=== PATIENT | female | born 1990 | race Caucasian/White ===

== ENCOUNTER 2018-12-25 05:15 | Inpatient (IN) | payer OTHER, MEDICAID ==
[2018-12-25] MEDS ORDERED: LORazepam 2 MG/ML INJ IVP ONE ×2 (05:27→14:41)
[2018-12-25] MEDS ORDERED: NS 1,000 ML IV ONE (05:27)
--- NOTE | 2018-12-25 05:27 | EDPHY ---
H & P Stated Complaint: heroin WD. tremors, abd and pain all over, tearful Time Seen by Provider: 12/25/18 05:16 HPI/ROS: Chief Complaint: Fever, pain, heroin withdrawal HPI: 28-year-old woman with a history of chronic heroin use is coming in complaining of withdrawal. Patient presented to detox this morning, they noticed she was tachycardic and unwell appearing. Patient states that she last used heroin an hour to ago, injecting into her left forearm. Patient is concerned because she thinks the syringe me abuse may have had some old blood in it. She is complaining of palpitations, general body pain. Some nausea, no vomiting, is complaining of chills. ROS: 10 systems were reviewed and were negative except those elements noted in the HPI. PMH: IV opioid abuse Social History: Positive smoking, no alcohol, IV opioid abuse Family History: non-contributory Physical Exam: Gen: Awake, Alert, unwell appearing, tachycardic, febrile to 38.3 HEENT: Nose: no rhinorrhea Eyes: PERRLA, EOMI Mouth: Moist mucosa Neck: Supple, no JVD Chest: nontender, lungs clear to auscultation Heart: S1, S2 normal, no murmur Abd: Soft, non-tender, no guarding Ext: no edema, non-tender Skin: no rash Neuro: CN II-XII intact, Sensation grossly intact, Strength 5/5 in bilateral upper and lower extremities - Personal History Current Tetanus/Diphtheria Vaccine: Unsure Current Tetanus Diphtheria and Acellular Pertussis (TDAP): Unsure - Medical/Surgical History Hx Asthma: No Hx Chronic Respiratory Disease: No Hx Diabetes: No Hx Cardiac Disease: No Hx Renal Disease: No Hx Cirrhosis: No Hx Alcoholism: No Hx HIV/AIDS: No Hx Splenectomy or Spleen Trauma: No Other PMH: heroin use/abuse, heroin withdrawl - Social History Smoking Status: Never smoked Constitutional: Initial Vital Signs Temperature (C) 38.3 C 12/25/18 05:20 Heart Rate 141 H 12/25/18 05:20 Respiratory Rate 22 H 12/25/18 05:20 Blood Pressure 125/99 H 12/25/18 05:20 O2 Sat (%) 97 12/25/18 05:20 O2 Delivery Mode Room Air Allergies/Adverse Reactions: No Known Allergies Allergy (Unverified 12/25/18 05:22) Home Medications: Medication Instructions Recorded NK [No Known Home Meds] 12/25/18 Medical Decision Making - Diagnostics Imaging Results: Chest x-ray per my interpretation shows a central lying injuring likely in into superior vena cava just above the right atrium. No pneumothorax. Procedures: Procedure: Central line placement. Indication: Severe sepsis, no IV access. Verbal informed consent was obtained, with the risks explained to include but not be limited to bleeding, infection, and collapsed lung. A timeout was observed and patients identity and correct procedure location confirmed. Full maximal sterile barrier technique was uses including cap, gown, sterile gloves, large sheet, hand washing and chlorhexidine prep. The area anesthetized with 1 % lidocaine. The right internal jugular was punctured with a 19 gauge finder needle, then a 7.5 [place] triple-lumen catheter was placed using standard Seldinger technique. There were no complications. Blood return low pressure, dark blood. Patient tolerated procedure well. CXR results: Central line in superior vena cava just above the right atrium. X-ray was interpreted by myself. The procedure was performed by myself. Procedure: Ultrasound guidance: Using the linear probe covered in a sterile sheath, a short axis of the vein was obtained. The vein was completely compressible and was identified as separate from the adjacent non-compressible arterial structure. Under real-time guidance, the introducer needle was observed up to the vein, and then punctured it. These images were saved on the database. ED Course/Re-evaluation: IV drug use review recently injected 2 hr ago from a old syringe at matted blood in it presenting with fever, tachycardia and pain. Initial lactate sent but no other bloods obtained. No IV access despite multiple attempts by nursing staff and myself. Lactic acid came back at 4.5. I then placed a central line. Patient declared severe sepsis. Blood sent. I have ordered IV vancomycin and Zosyn. Patient remains tachycardic. Blood pressure 125 systolic initially. Patient's white count of 1.1. Complaining of back pain. Concerning for possible epidural abscess. No other source of infection identified other than her IV use. She is getting her IV fluid bolus. She has a have antibiotics ordered. I have discussed with Dr. Garsia, hospitalist. He will admit to the ICU for further care. Critical Care Time: I spent a total of 40 minutes of critical care time in obtaining history, performing a physical exam, bedside monitoring of interventions, collecting and interpreting tests and discussion with consultants but not including time spent performing procedures. - Data Points Laboratory Results: Laboratory Results 12/25/18 06:10 12/25/18 06:10 12/25/18 12/25/18 12/25/18 06:10 06:10 06:10 WBC 1.13 10^3/uL L 10^3/uL (3.80-9.50) RBC 4.08 10^6/uL L 10^6/uL (4.18-5.33) Hgb 11.3 g/dL L g/dL (12.6-16.3) Hct 35.1 % L % (38.0-47.0) MCV 86.0 fL fL (81.5-99.8) MCH 27.7 pg L pg (27.9-34.1) MCHC 32.2 g/dL L g/dL (32.4-36.7) RDW 14.8 % % (11.5-15.2) Plt Count 158 10^3/uL 10^3/uL (150-400) MPV 8.3 fL L fL (8.7-11.7) Neut % (Auto) Pending Lymph % (Auto) Pending [place] % (Auto) Pending Eos % (Auto) Pending Baso % (Auto) Pending Nucleat RBC Rel Count Pending Absolute Neuts (auto) Pending Absolute Lymphs (auto) Pending Absolute Monos (auto) Pending Absolute Eos (auto) Pending Absolute Basos (auto) Pending Absolute Nucleated RBC Pending Immature Gran % Pending Immature Gran # Pending Platelet Estimate Pending PT 14.2 SEC SEC (12.0-15.0) INR 1.15 (0.83-1.16) APTT 31.1 SEC SEC (23.0-38.0) VBG Lactic Acid Sodium 138 mEq/L mEq/L (135-145) Potassium 3.5 mEq/L mEq/L (3.5-5.2) Chloride 105 mEq/L mEq/L (97-110) Carbon Dioxide 22 mEq/l mEq/l (22-31) Anion Gap 11 mEq/L mEq/L (6-14) BUN 19 mg/dL mg/dL (7-23) Creatinine 0.7 mg/dL mg/dL (0.6-1.0) Estimated GFR > 60 Glucose 108 mg/dL H mg/dL (70-100) Calcium 8.8 mg/dL mg/dL (8.5-10.4) Total Bilirubin 3.2 mg/dL H mg/dL (0.1-1.4) Conjugated Bilirubin 0.8 mg/dL H mg/dL (0.0-0.5) Unconjugated Bilirubin 2.4 mg/dL H mg/dL (0.0-1.1) 12/25/18 05:25 WBC RBC Hgb Hct MCV MCH MCHC RDW Plt Count MPV Neut % (Auto) Lymph % (Auto) [place] % (Auto) Eos % (Auto) Baso % (Auto) Nucleat RBC Rel Count Absolute Neuts (auto) Absolute Lymphs (auto) Absolute Monos (auto) Absolute Eos (auto) Absolute Basos (auto) Absolute Nucleated RBC Immature Gran % Immature Gran # Platelet Estimate PT INR APTT VBG Lactic Acid 4.5 mmol/L H mmol/L (0.7-2.1) Sodium Potassium Chloride Carbon Dioxide Anion Gap BUN Creatinine Estimated GFR Glucose Calcium Total Bilirubin Conjugated Bilirubin Unconjugated Bilirubin Medications Given: Sodium Chloride (Ns) 1,900 mls @ 3,800 mls/hr 30 ml/kg infuse over 30 min ( 1900 ml) IV EDNOW ONE PRN Reason: Protocol Stop: 12/25/18 06:42 Last Admin: 12/25/18 06:17 Dose: 1,900 mls Vancomycin/Sodium Chloride (Vancomycin 1 Gm (Premix)) 250 mls @ 250 mls/hr IV EDNOW ONE PRN Reason: Protocol Stop: 12/25/18 07:14 Last Admin: 12/25/18 06:23 Dose: 250 mls Piperacillin/Tazobactam/Dextrose (Zosyn (Premix)) 100 mls @ 200 mls/hr IV EDNOW ONE PRN Reason: Protocol Stop: 12/25/18 06:42 Last Admin: 12/25/18 06:33 Dose: 100 mls Discontinued Medications Sodium Chloride (Ns) 1,000 mls @ 0 mls/hr IV ONCE ONE; Wide Open PRN Reason: Protocol Stop: 12/25/18 05:28 Last Admin: 12/25/18 06:11 Dose: 1,000 mls Lorazepam (Ativan Injection) 1 mg IVP EDNOW ONE Stop: 12/25/18 05:28 Last Admin: 12/25/18 06:15 Dose: 1 mg Midazolam HCl (Versed) 2 mg NASAL EDNOW ONE Stop: 12/25/18 06:00 Last Admin: 12/25/18 05:53 Dose: 2 mg Departure - Departure Disposition: [facility] Inpatient Acute Clinical Impression: Sepsis Condition: Critical
[2018-12-25] MEDS ORDERED: LORazepam 2 MG/ML INJ ONE (05:34)
[2018-12-25] MEDS ORDERED: MIDAZOLAM 2 MG/2 ML VIAL ONE (05:52)
[2018-12-25] MEDS ORDERED: MIDAZOLAM 10 MG/2 ML VIAL NASAL ONE (05:59)
[2018-12-25] MEDS ORDERED: PIPERACILLIN/TAZO 4.5 GM/DEX 100 ML IV ONE (06:13)
[2018-12-25] MEDS ORDERED: NS 1,900 ML IV ONE ×2 (06:13)
[2018-12-25] MEDS ORDERED: VANCOMYCIN HCL/NORMAL SALINE 250 ML IV ONE (06:15)
[2018-12-25 06:17] LABS: PLATELET COUNT 158 10^3/uL (150-400)
[2018-12-25 06:31] LABS: INR 1.15 (0.83-1.16); PROTIME(PATIENT) 14.2 SEC (12.0-15.0)
[2018-12-25] MEDS ORDERED: ONDANSETRON DISINTEGRATING 4 MG TAB PO PRN (06:40)
[2018-12-25] MEDS ORDERED: ACETAMINOPHEN 325 MG TAB PO PRN (06:40)
--- NOTE | 2018-12-25 07:08 | PDGENHP ---
History and Physical - Chief Complaint Pain all over - History of Present Illness 28 yo F w/ hx of IV heroin use presents with pain all over. She presented to detox this morning and was immediately noted to be toxic appearing. The patient last used IV heroin about one hour prior to arrival. She is concerned because she thinks the syringe may have had some of her old blood in it. She is complaining of abdominal pain and back pain to her "whole back". She is tender to palpation in her abdomen diffusely as well as both flanks. My history is limited due to sedation obtained for procedure in the ED. In the ED she is in severe sepsis. She is leukopenic, tachycardic, and febrile. Her blood pressure has remained normal thus far. She had a central line inserted. She will be admitted to the ICU for further care. Case discussed with ED physician Dr. Marino; records reviewed and summarized above. History Information - Allergies/Home Medication List Allergies/Adverse Reactions: No Known Allergies Allergy (Unverified 12/25/18 05:22) Home Medications: NK [No Known Home Meds] 12/25/18 [Last Taken Unknown] I have personally reviewed and updated: family history, medical history - Past Medical History Additional medical history: IVDU - Surgical History Reports: no pertinent surgical hx - Family History Additional family history: Unable to obtain - Social History Smoking Status: Never smoked Review of Systems Review of Systems: Unable to obtain due to mental status Physical Exam Physical Exam: Temp Pulse Resp BP Pulse Ox 38.3 C 128 H 22 H 126/87 H 100 12/25/18 05:20 12/25/18 06:44 12/25/18 06:44 12/25/18 06:44 12/25/18 06:44 O2 (L/minute) 2 Constitutional: uncomfortable, other (Sedated, tearful) Eyes: PERRL, anicteric sclera Ears, Nose, Mouth, Throat: moist mucous membranes, no oral mucosal ulcers Cardiovascular: no murmur, rub, or gallop, tachycardia Respiratory: no respiratory distress, clear to auscultation Gastrointestinal: tenderness (Diffuse), No rebound Genitourinary: other (Bilateral CVA tenderness) Skin: warm, normal color Neurologic: CN II-XII Intact, other (Sedated) Psychiatric: anxious, other (Tearful) Lab Data & Imaging Review 12/25/18 06:10 12/25/18 06:10 WBC 1.13 10^3/uL (3.80-9.50) L 12/25/18 06:10 RBC 4.08 10^6/uL (4.18-5.33) L 12/25/18 06:10 Hgb 11.3 g/dL (12.6-16.3) L 12/25/18 06:10 Hct 35.1 % (38.0-47.0) L 12/25/18 06:10 MCV 86.0 fL (81.5-99.8) 12/25/18 06:10 MCH 27.7 pg (27.9-34.1) L 12/25/18 06:10 MCHC 32.2 g/dL (32.4-36.7) L 12/25/18 06:10 RDW 14.8 % (11.5-15.2) 12/25/18 06:10 Plt Count 158 10^3/uL (150-400) 12/25/18 06:10 MPV 8.3 fL (8.7-11.7) L 12/25/18 06:10 PT 14.2 SEC (12.0-15.0) 12/25/18 06:10 INR 1.15 (0.83-1.16) 12/25/18 06:10 APTT 31.1 SEC (23.0-38.0) 12/25/18 06:10 VBG Lactic Acid 4.5 mmol/L (0.7-2.1) H 12/25/18 05:25 Sodium 138 mEq/L (135-145) 12/25/18 06:10 Potassium 3.5 mEq/L (3.5-5.2) 12/25/18 06:10 Chloride 105 mEq/L (97-110) 12/25/18 06:10 Carbon Dioxide 22 mEq/l (22-31) 12/25/18 06:10 Anion Gap 11 mEq/L (6-14) 12/25/18 06:10 BUN 19 mg/dL (7-23) 12/25/18 06:10 Creatinine 0.7 mg/dL (0.6-1.0) 12/25/18 06:10 Estimated GFR > 60 12/25/18 06:10 Glucose 108 mg/dL (70-100) H 12/25/18 06:10 Calcium 8.8 mg/dL (8.5-10.4) 12/25/18 06:10 Total Bilirubin 3.2 mg/dL (0.1-1.4) H 12/25/18 06:10 Conjugated Bilirubin 0.8 mg/dL (0.0-0.5) H 12/25/18 06:10 Unconjugated Bilirubin 2.4 mg/dL (0.0-1.1) H 12/25/18 06:10 Urine Color YELLOW 12/25/18 06:38 Urine Appearance HAZY 12/25/18 06:38 Urine pH 5.0 (5.0-7.5) 12/25/18 06:38 Ur Specific [place] 1.020 (1.002-1.030) 12/25/18 06:38 Urine Protein NEGATIVE (NEGATIVE) 12/25/18 06:38 Urine Ketones NEGATIVE (NEGATIVE) 12/25/18 06:38 Urine Blood 1+ (NEGATIVE) H 12/25/18 06:38 Urine Nitrate POSITIVE (NEGATIVE) H 12/25/18 06:38 Urine Bilirubin NEGATIVE (NEGATIVE) 12/25/18 06:38 Urine Urobilinogen NEGATIVE EU (0.2-1.0) 12/25/18 06:38 Ur Leukocyte Esterase NEGATIVE (NEGATIVE) 12/25/18 06:38 Urine Glucose NEGATIVE (NEGATIVE) 12/25/18 06:38 Assessment & Plan Assessment: 28 yo F w/ hx of IVDU presents with severe sepsis. Plan: 1. Severe sepsis - Most likely due to bloodstream infection noting symptoms started a few hours after injecting heroin with an old needle, possibly with old blood still in it. The patient is complaining of abdominal pain and back pain "all over". She is tender throughout her abdomen and both flanks. She is displaying 4/4 SIRS criteria and has a lactate of 4.5 but BP remains WNL. - Admit to ICU, central line in place - 30 mL kg fluid bolus - Vancomycin, Zosyn IV for broad coverage; high risk for resistant infections - Blood and urine cultures ordered - Will obtain CT A/P noting patient's complaints of abdominal pain and back pain , may need MRI if concern for spinal infection arises - Infectious disease consult placed 2. Leukopenia - WBC 1.1, ANC 750 on admission, most likely due to severe sepsis. - Acute management as above - Will check HIV 3. Lactic acidosis - 2/2 sepsis; 4.5 on admission. - Aggressive IVF 4. IVDU - Patient admits to IV heroin use as recently as a few hours prior to admission. - Director Microbiology cessation - Case management consult - Check HIV, hepatitis panel Diet - NPO pending improvement in mental status Code - Full Ppx - SCDs Dispo - Admit under inpatient status I personally spent 40 minutes of critical care time evaluating patient, interpreting data, and coordinating care.
[2018-12-25] MEDS ORDERED: IOPAMIDOL (ISOVUE-300) 100 ML BTL ONE (07:13)
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
[2018-12-25 09:25] LABS: CREATINE KINASE 47 IU/L (0-156)
--- NOTE | 2018-12-25 09:47 | GCON ---
[f rep st] CONSULTATION JUDGE CLERK CONSULTATION I was asked to see this patient by Dr. Darren Garsia. REASON FOR ADMISSION: Sepsis. Patient is a 28-year-old white female with a past medical history inc luding IV heroin use. She presented to detox and was found to be ill-appearing. She was complaining of abdominal pain as well as severe back pain. There is a possibility the syringe she was using may have been dirty. She was seen in the emergency room, was subsequently admitted to the intensive car e unit with severe sepsis. Currently, she is continuing to complain of abdominal pain as well as adore k pain. She denies any cough or productive sputum. There is no dysuria. She has had both fever and diaphoresis. In the emergency room a central line has been placed. REVIEW OF SYSTEMS: Ten-point review of systems performed and negative except for what is listed in t he HPI. ALLERGIES: None. MEDICATIONS: SOCIAL HISTORY: No history of tobacco use. Unknown alcohol use. IV drug use. She is currently une mployed. FAMILY HISTORY: Significant for drug use. PHYSICAL EXAM: VITAL SIGNS: Blood pressure 101/69, this is down from 127/100, pulse is 137, respira tions 25, temperature 38.7, oxygen saturation 91% on room air. GENERAL: She is a well-developed, di aphoretic, 28-year-old white female who is in moderate pain. HEENT: Eyes are PERRLA, EOMI. Throat shows no erythema or tonsillar tissue. NECK: Supple. No cervical adenopathy. HEART: Regular rate and rhythm without murmurs, rubs, gallops. LUNGS: Diminished breath sounds but no wheeze. ABDOMEN : Soft, diffusely tender. Bowel sounds are present. EXTREMITIES: No clubbing, cyanosis, or edema. LABORATORIES: White count is 1.13, hemoglobin 13, hematocrit 35, platelet count is 158. Sodium 138, potassium 3.5, chloride 105, CO2 is 22, BUN is 19, creatinine 0.7, glucose is 108. Bilirubin is dayanara vated at 3.1, AST is elevated at 241, ALT is elevated at 165, alkaline phosphatase 189. Urinalysis s hows pH 5, specific gravity 1.020, positive nitrate, 5-10 WBCs, 4+ bacteria. Tox screen is currently pending. Hepatitis screen is currently pending. Chest x-ray is clear. IMPRESSION: 1. Severe sepsis. Source is unclear at this time. Cultures are currently pending. 2. History of IV heroin use with likely use of a dirty needle. 3. Abdominal pain. 4. Back pain. 5. Leukopenia. 6. Severe sepsis. 7. Lactic acidosis. RECOMMENDATIONS: 1. Agree with sepsis protocol. 2. IV antibiotics. Resume vancomycin and Zosyn. 3. Agree with Infectious Disease consultation. 4. CT scan of the abdomen and pelvis. 5. Would consider MRI of the spine. 6. Would consider echocardiogram. 7. Aggressive hydration. 8. Close cardiovascular monitoring. 9. DVT and PE prophylaxis. 10. Stress ulcer prophylaxis. Thank you very much for allowing me to participate in the care of this patient. We will follow with you. /[id number]/MODL
[2018-12-25 10:34] LABS: HEPATITIS B SURFACE ANTIGEN NEGATIVE (NEGATIVE)
[2018-12-25] MEDS: MICAFUNGIN NA 100 MG in NS 100 ML IV SCH (10:40)
[2018-12-25 10:48] LABS: HEPATITIS A ANTIBODY IGM (BCH) NEGATIVE (NEGATIVE); HEPATITIS B CORE AB IGM NEGATIVE (NEGATIVE)
[2018-12-25] MEDS: NOREPINEPHRINE BITARTRATE 4 MG in NS 500 ML IV SCH ×2 (10:48→15:54)
[2018-12-25 10:58] LABS: HEPATITIS C ANTIBODY TOTAL REACTIVE (NEGATIVE)
[2018-12-25] MEDS ORDERED: NOREPINEPHRINE BITARTRATE 16 MG in NS 250 ML IV SCH (11:00)
--- NOTE | 2018-12-25 11:09 | GCON ---
[f rep st] CONSULTATION DATE OF CONSULTATION: 12/25/2018 REFERRING PHYSICIAN: Maria E Ye MD REASON FOR CONSULTATION: Severe sepsis. HISTORY OF PRESENT ILLNESS: The patient is a 28-year-old female with a past medical history of injec tion drug use, I am asked to see in consultation for severe sepsis. The patient describes 1 day of f ever, shaking chills and pain all over. The patient also complains of pain affecting the flanks and back. Her history is somewhat limited currently due to sleepiness. She denies any cough or shortnes s of breath. She denies any skin rash or prior history of skin abscesses. She does not note dysuria . She has not had any difficulty using her arms or legs. The patient describes using a needle of he r own, which had dried blood in it prior to onset of symptoms. She does not share needles. She stat es she gets her needles from needle exchange. She uses tap water to dissolve her heroin. Upon arriv al at [facility], she was noted to be febrile with a maximum temperature this morning o f 39.4. Laboratory assessment revealed a white blood cell count of 1.1 with 67% neutrophils and 9% b ands; AST 241, ALT 165, bilirubin 3.1 (conjugated 0.8), alkaline phosphatase 189 and CPK of 47. Ches t x-ray was performed and showed no evidence of pneumonia. She subsequently had an abdominal CT scan performed, which showed a small amount of ascites with no evidence of other intraabdominal pathology other than constipation being noted. No biliary ductal dilatation was present. The patient has bee n treated empirically with vancomycin and piperacillin/tazobactam. She has not required pressors for blood pressure support. Her lactic acid was elevated at 4.5 upon presentation and has decreased to 2.2. There is no recent travel. Given the above findings, I am now asked to assist in her ongoing m anagement. PAST MEDICAL HISTORY: Injection drug use x4 years; no history of previous infectious complications. PAST SURGICAL HISTORY: Appendectomy, exploratory laparotomy with question of due to adhesions; right arm fracture. CURRENT MEDICATIONS: Vancomycin 1 g IV x1, Zosyn 3.375 g IV q.6 hours, Toradol as needed. ALLERGIES: No known drug allergies. SOCIAL HISTORY: The patient smokes 1 pack per week. Denies significant alcohol use. Injection hero in use as outlined above. She does not note any other drug use. FAMILY HISTORY: Currently not obtainable. PHYSICAL EXAMINATION: VITAL SIGNS: Temperature maximum 39.4, temperature current 38.7, heart rate 1 30, respiratory rate 26, blood pressure 98/59. GENERAL: The patient is ill appearing with diaphores is being present. HEENT: There is no scleral icterus, conjunctival injection, or conjunctival petec hiae. Oropharynx shows dry mucous membranes. Dentition in fair repair. There is no nasal discharge or sinus tenderness. NECK: Supple without meningismus. There is mild point tenderness along the c ervical spine. CHEST: There are occasional crackles at both bases. The respiratory effort is incre ased. CARDIOVASCULAR: Tachycardic without murmurs, gallops, or rubs. ABDOMEN: Soft, nontender and nondistended. There is no palpable organomegaly. Bowel sounds are hypoactive. MUSCULOSKELETAL: T here is tenderness over both upper extremities to palpation of the muscle bed; this is not present ov er the lower extremity. There is no cyanosis or clubbing. SKIN: Several tattoos are present. No s tigmata of endocarditis. There is signs of injection drug use over the arms bilaterally. No evidenc e of skin abscesses. NEUROLOGIC: The patient is sleepy, but arousable and responds appropriately. Cranial nerves 2-12 are grossly intact. Sensation is grossly intact. Motor strength is limited by e ffort, but appears to be intact in the lower extremities and upper extremities. LYMPHATICS: No cerv ical, supraclavicular, or inguinal nodes palpable. LABORATORY DATA: White blood cell count 1.1, hematocrit 35.1, platelets 158, neutrophils 67%, bands 9%, lymphocytes 22%. Serum creatinine is 0.7, bicarbonate 22, bilirubin 3.2 (conjugated 0.8), AST 24 1, ALT 165, alkaline phosphatase 189, CPK 47, albumin 3.8, INR is 1.1. Venous lactate 4.5 at time of presentation and currently 2.2. Urinalysis shows 1 to 3 red blood cells, 5 to 10 white blood cells, 4+ bacteria and 2+ mucus. Hepatitis B surface antigen is negative. HIV antibody is pending. Hepat itis A IgM is pending. Hepatitis C antibody is pending. Urine drug screen shows presence of opiates , amphetamines and benzodiazepine; alcohol is less than 10, acetaminophen less than 10. Blood cultur es x2 sets are pending. Chest x-ray without infiltrates being noted. Abdominal CT scan as outlined in the history of present illness. IMPRESSION: 1. Severe sepsis in the setting of injection drug use: Primary concern is for bacteremia associated with injection drug use. Most likely, this would be Staphylococcus aureus or beta-hemolytic strepto cocci, although in the setting of injection drug use, gram-negative rods including Pseudomonas are of consideration. In the setting of injection drug use, candidemia would also be in the differential d iagnosis. Given her neck pain, epidural abscess or diskitis also of possible concern. Endocarditis also consideration in the setting of injection drug use. She is also at risk for Streptococcus pneum oniae based on her tobacco use. 2. Leukopenia: Likely secondary to severe sepsis. 3. Elevated liver enzymes: Await hepatitis serologies, as patient will be at substantial risk of he patitis C in the setting of injection drug use. No evidence of biliary disease on CT scan. Bilirubi n is increased, but is primarily unconjugated. Will follow hematocrit over time to ensure no evidenc e of hemolysis. 4. Injection drug use: Screening serologies including HIV antibody are pending. RECOMMENDATIONS: 1. Agree with empiric vancomycin. Will dose initially at 1 g IV q.12 hours. 2. Increase Zosyn to 4.5 g IV q.6 hours to cover Pseudomonas pending blood culture data. 3. Micafungin 100 mg IV q.24 hours pending blood culture data to provide activity against candidemia . 4. MRI of the cervical spine to assess for epidural abscess or diskitis. 5. Transthoracic echocardiogram. 6. Follow up blood cultures as available. 7. Continued care of sepsis in the intensive care unit. Thank you for this consultation. We will continue to follow the patient with you. /[id number]/MODL
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
[2018-12-25] MEDS ORDERED: PIPERACILLIN/TAZO 3.375 GM/DEX 50 ML IV SCH (12:00)
[2018-12-25] MEDS: PIPERACILLIN/TAZO 4.5 GM/DEX 100 ML IV SCH ×2 (12:10→17:35)
--- NOTE | 2018-12-25 12:49 | ECHO ---
[email or web address] [address] Main: [phone] Echocardiography Examination Transthoracic Name: RAFITA CANO MR#: [id number] Study Date: 12/25/2018 Study Time: 11:19 AM Date of : 1990 Age: 28 year(s) Height: 167.6 cm (66 in.) Weight: 63.05 kg (139 lb.) BSA: 1.71 m2 Gender: Female Examination: Echo Contrast: Image Quality: Adequate Rhythm: Heart Rate: BP: 97 mmHg/61 mmHg Indication: sepsis, injection drug use, assess for endocarditis Procedure Staff Referring Physician: Major General: Juliana Morris [facility] Reading Physician: Solis Granda MD Requesting Provider: Ordering Physician: Brayden Epstein Indication: sepsis, injection drug use, assess for endocarditis Measurements Chambers AV/MV Label Value Normal Value Label Value Normal Value LVOTd 2.1 cm (1.8cm - 2cm) AV PGmax 8 mmHg LVOT VTI 17.9 cm (18cm - 22cm) AV PGmean 5 mmHg LVDd, 2D 4 cm (3.9cm - 5.3cm) AV Vmax 1.4 m/s LVDs, 2D 3.2 cm (2.1cm - 4cm) TAMY (VTI) 2.8 cm2 IVSd, 2D 1 cm (0.6cm - 1.1cm) MV E Vmax 0.89 m/s LVPWd, 2D 1 cm MV A Vmax 0.7 m/s LVEF, BP 54 % (55% - 70%) MV E/A 1.27 LVEF, 2D 44 % (54% - 74%) MV E/E' lateral 5.3 LVOT PGmean 3 mmHg MV E/E' septal 7 (0.6 - 2.6) LVOT Vmean 0.83 m/s MV DT 187 ms RVDd, 2D 2.8 cm (1.9cm - 3.8cm) MV E' septal 0.13 m/s LA Volume, BP 41 ml (22ml - 52ml) MV PHT 0.05 s LADs, 2D 3.1 cm (2.7cm - 3.8cm) MVA PHT 4.1 cm2 LAESV index, BP 24 ml/m2 MV E' lateral 0.17 m/s RA Area 14.3 cm2 MV E/E' mean 5.93 Additional Vessels MV PHT 54 ms Label Value Normal Value MV E' mean 0.15 m/s AoAsc 2.9 cm TV/PV AoRoot, 2D 3 cm (1.4cm - 2.6cm) Label Value Normal Value Patient: RAFITA CANO Study Date: 12/25/2018 Page 1 of 3 11:19 AM IVC 1.9 cm (1.2cm - 2.3cm) RA Pressure 5 mmHg RVSP 32 mmHg TR Pmax 27 mmHg TR Vmax 2.61 m/s PV PGmax 3 mmHg PV Vmax, Caliper 0.83 m/s (0.6m/s - 0.9m/s) Conclusions No evidence of endocarditis. Left Ventricle: The ejection fraction, measured by Simpsons method, is 54 %. There are no regional wall motion abnormalities. Left ventricular diastolic function parameters are normal. Mitral Valve: Mitral valve appears structurally normal. Aortic Valve: Aortic leaflets are structurally normal. Tricuspid Valve: Tricuspid valve leaflets are structurally normal. Mild tricuspid regurgitation. Right Ventricular systolic pressure is measured at 32 mmHg. Pericardium: No pericardial effusion. Findings No evidence of endocarditis. Left Ventricle: Left ventricle is normal in size. Normal global systolic left ventricular function. The ejection fraction, measured by Simpsons method, is 54 %. EF range is estimated at 55 % - 60 %. Left ventricle wall thickness is normal. There are no regional wall motion abnormalities. Left ventricular diastolic function parameters are normal. No LV hypertrophy. Right Ventricle: Normal size right ventricle. Right ventricular systolic function is normal. Left Atrium: The left atrium is normal in size. Right Atrium: The right atrium is normal in size. Mitral Valve: Mitral valve appears structurally normal. Mild mitral regurgitation. No mitral valve stenosis. Aortic Valve: Aortic leaflets are structurally normal. No significant aortic valve regurgitation. There is no aortic stenosis. Tricuspid Valve: Tricuspid valve leaflets are structurally normal. Mild tricuspid regurgitation. No tricuspid valve stenosis. Right Ventricular systolic pressure is measured at 32 mmHg. Pulmonary artery pressure normal. Pulmonic Valve: Pulmonic leaflets are structurally normal. Aorta: The aortic root size in 2D measures 3.0 cm. The ascending aorta measures 2.9 cm. Aorta Measurements AoRoot, 2D is 3.0 cm. IVC: Patient: RAFITA CANO Study Date: 12/25/2018 Page 2 of 3 11:19 AM The inferior vena cava is normal in size. Pericardium: No pericardial effusion. Exam Details Procedure Ordered: Echo Procedure Status: Routine study Image Quality: Adequate Facility Location: Bedside (No Signature Object) Patient: RAFITA CANO Study Date: 12/25/2018 Page 3 of 3 11:19 AM [id number]
[2018-12-25] MEDS: KETOROLAC 15 MG/1 ML SDV IVP PRN (13:50)
--- NOTE | 2018-12-25 14:12 | PDMN ---
Medical Necessity Medical necessity: Pt meets IP criteria per MD & MCG M-160; est los >2 mn for eval/tx of severe sepsis (likely r/t bloodstream infection after injecting heroin w/an old needle) w/tachycardia, tachypnea, leukopenia & lactic acidosis; admit to ICU for further workup/close monitoring, IV abx, aggressive IVFs & ID consult; hx IV drug use; per H&P & order 12/25/18
[2018-12-25] MEDS ORDERED: GADOBUTROL 10 ML VIAL IVP ONE (15:05)
[2018-12-25] MEDS: VANCOMYCIN HCL/NORMAL SALINE 250 ML IV SCH (18:09)
[2018-12-26] MEDS: PIPERACILLIN/TAZO 4.5 GM/DEX 100 ML IV SCH ×5 (00:03→23:03)
[2018-12-26] MEDS ORDERED: IBUPROFEN 600 MG TAB PO PRN (01:55)
[2018-12-26] MEDS ORDERED: LOPERAMIDE HCL 2 MG CAP PO PRN (01:55)
[2018-12-26] MEDS: KETOROLAC 15 MG/1 ML SDV IVP PRN ×3 (02:27→18:04)
[2018-12-26] MEDS: LORazepam 1 MG TAB PO PRN ×5 (02:28→23:59)
[2018-12-26] MEDS ORDERED: NS 1,000 ML IV SCH (02:30)
[2018-12-26] MEDS: ONDANSETRON 4 MG/2 ML VIAL IVP PRN (02:42)
[2018-12-26] MEDS: ACETAMINOPHEN 325 MG TAB PO PRN ×2 (04:21→10:00)
[2018-12-26 05:09] LABS: PLATELET COUNT 96 10^3/uL (150-400)
[2018-12-26] MEDS ORDERED: LORazepam 2 MG/ML INJ IVP ONE (05:30)
[2018-12-26] MEDS: VANCOMYCIN HCL/NORMAL SALINE 250 ML IV SCH ×2 (06:22→18:21)
[2018-12-26] MEDS: MICAFUNGIN NA 100 MG in NS 100 ML IV SCH (08:25)
--- NOTE | 2018-12-26 08:32 | PCMIDPN ---
Assessment/Plan: #Sepsis with IVDU. Now with bandemia/thrombocytopenia suggestive of bacteria process. There is concern for endocarditis but No murmur no peripheral stigmata , TTE negative. Blood cx neg 24h. On empiric therapy for MRSA, PsA, Bonnie. non contrast C and T spine negative. Hemodynamics are better. AF since 12/25 --continue current antibiotic regimen for another 24 hr --hold off on AMBER for now, await blood cultures. --check vancomycin trough, goal around 15 # Elevated LFTs and HCV ab + VL pending: not awake enough at time of my visit to review these findings. HIV negative. Acute HBV studies negative. LFTs trending down . Suspect elevation due to sepsis --add HBV ab to assure prior vaccination/immunity --acute HCV not likely etiology of illness # Leukopenia on admit resolved, no more appropriate leukocytosis/bandemia Medications Zosyn 4.5 g IV Q 6 #1 Micafungin 100 mg IV daily #2 Vancomycin 1 g IV q.12 #2 Microbiology 12/25/18 06:10 Blood Cx (2): NGTD Subjective: very difficult to get to wake up off all pressors Objective: Vital Signs Temp Pulse Resp BP Pulse Ox 36.7 C 100 21 H 113/84 H 96 12/26/18 03:00 12/26/18 08:00 12/26/18 08:00 12/26/18 08:00 12/26/18 08:00 Laboratory Results 12/26/18 04:30 12/26/18 04:30 12/25/18 12/26/18 12/27/18 05:59 05:59 05:59 Intake Total 5356 Output Total 2750 550 Balance 2606 -550 - Physical Exam General Appearance: other (sleepy) EENT: No scleral icterus, No conjunctival petechiae Respiratory: lungs clear, No accessory muscle use Cardiac/Chest: regular rate, rhythm, No systolic murmur Extremities: other (no peripheral sigmata of endocarditis), No pedal edema Skin: No rash Neuro/Psych: alert, normal mood/affect, oriented x 3 - Time Spent With Patient Time Spent with Patient: greater than 25 minutes (care coordinated w critical care team) Time Spent with Patient: Greater than 25 minutes spent on this patients care, greater than 50% of time spent counseling, educating, and coordinating care regarding the above mentioned plan. ICD10 Worksheet Patient Problems: Problems Problem Status Onset Sepsis Acute
--- NOTE | 2018-12-26 09:01 | PDINTPN ---
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 Echocardiogram shows no evidence of vegetations. Blood cultures pending -current antibiotics per Infectious Disease * Abdominal pain-CT scan of abdomen mostly unremarkable * Back pain-MRI of the spine was negative * Leukopenia * History of IV heroin abuse-some withdrawals. * Pain-reasonably well controlled * VTE prophylaxis * Stress ulcer prophylaxis * Nutrition-none currently Subjective: Somnolent. No current pain. Infrequent outbursts per nursing Objective: Vital Signs Temp Pulse Resp BP Pulse Ox 36.7 C 100 21 H 113/84 H 96 12/26/18 03:00 12/26/18 08:00 12/26/18 08:00 12/26/18 08:00 12/26/18 08:00 Laboratory Results 12/26/18 04:30 12/26/18 04:30 12/25/18 12/26/18 12/27/18 05:59 05:59 05:59 Intake Total 5356 Output Total 2750 550 Balance 2606 -550 PT 14.2 SEC (12.0-15.0) 12/25/18 06:10 INR 1.15 (0.83-1.16) 12/25/18 06:10 Chest x-ray by myself. Apices are cut off. Central live in good position. Slight bibasilar atelectasis - Time Spent With Patient Time Spent With Patient: 35 min of time spent with patient, over 1/2 involved coordination of care or counseling. Case discussed with nursing and Infectious Disease Physical Exam - Physical Exam General Appearance: alert, other (Somnolent) EENT: PERRL/EOMI Neck: non-tender, supple Respiratory: crackles (Few basilar), No respiratory distress, No wheezing Cardiac/Chest: normal peripheral pulses, regular rate, rhythm Peripheral Pulses: 2+: carotid (R), carotid (L), femoral (R), femoral (L), dorsalis-pedis (R), dorsalis-pedis (L) Abdomen: normal bowel sounds, non-tender, soft Pelvic Exam: deferred Rectal: deferred Skin: normal color, warm/dry Extremities: non-tender Neuro/Psych: alert ICD10 Worksheet Patient Problems: Problems Problem Status Onset Sepsis Acute
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
[2018-12-26] MEDS: hydrOXYzine HCL 25 MG TAB PO PRN ×3 (10:00→22:52)
[2018-12-26] MEDS: ENOXAPARIN 40 MG/0.4 ML SYR SC SCH (11:42)
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
[2018-12-26] MEDS: VANCOMYCIN 1.25 GM in NS 250 ML IV SCH (18:49)
[2018-12-26] MEDS ORDERED: GABAPENTIN 300 MG CAP PO SCH (20:00)
[2018-12-26] MEDS: PROMETHAZINE HCL 25 MG TAB PO PRN (20:29)
[2018-12-26] MEDS: GABAPENTIN 300 MG CAP PO SCH (22:51)
[2018-12-27] MEDS: KETOROLAC 15 MG/1 ML SDV IVP PRN ×2 (02:02→22:39)
[2018-12-27] MEDS: VANCOMYCIN 1.25 GM in NS 250 ML IV SCH ×2 (02:03→09:27)
[2018-12-27] MEDS: PROMETHAZINE HCL 25 MG TAB PO PRN (02:03)
[2018-12-27 03:56] LABS: PLATELET COUNT 129 10^3/uL (150-400)
[2018-12-27] MEDS: LORazepam 1 MG TAB PO PRN ×3 (04:55→22:39)
[2018-12-27] MEDS: PIPERACILLIN/TAZO 4.5 GM/DEX 100 ML IV SCH (04:56)
--- NOTE | 2018-12-27 09:01 | PDINTPN ---
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 Off pressors. Echocardiogram shows no evidence of vegetations. Blood cultures pending -current antibiotics per Infectious Disease * Abdominal pain-CT scan of abdomen mostly unremarkable * Back pain-MRI of the spine was negative * Leukopenia * Lactic acidosis-resolved * History of IV heroin abuse-currently withdrawing -continue close cardiovascular monitoring -continue clonidine * Urinary tract infection * Encephalopathy-slow to improve * Pain-reasonably well controlled * VTE prophylaxis * Stress ulcer prophylaxis * Nutrition-none currently Subjective: Somnolent-poorly arousable. Objective: Vital Signs Temp Pulse Resp BP Pulse Ox 37.3 C 68 28 H 124/87 H 95 12/27/18 07:50 12/27/18 07:50 12/27/18 07:50 12/27/18 07:50 12/27/18 07:50 Microbiology 12/25/18 07:10 Urine Culture - Final Unspecified Escherichia Coli Laboratory Results 12/27/18 03:25 12/27/18 03:25 12/26/18 12/27/18 12/28/18 05:59 05:59 05:59 Intake Total 5356 4566 Output Total 2750 1275 Balance 2606 3291 PT 14.2 SEC (12.0-15.0) 12/25/18 06:10 INR 1.15 (0.83-1.16) 12/25/18 06:10 Laboratory Results 12/27/18 03:25 12/27/18 03:25 12/27/18 03:25 Calcium 8.5 mg/dL mg/dL (8.5 - 10.4) Total Bilirubin 2.2 mg/dL H mg/dL (0.1 - 1.4) Conjugated Bilirubin 1.4 mg/dL H mg/dL (0.0 - 0.5) Unconjugated Bilirubin 0.8 mg/dL mg/dL (0.0 - 1.1) AST 51 IU/L H IU/L (14 - 46) ALT 105 IU/L H IU/L (9 - 52) Alkaline Phosphatase 143 IU/L H IU/L (38 - 126) Total Protein 5.7 g/dL L g/dL (6.3 - 8.2) Albumin 2.9 g/dL L g/dL (3.5 - 5.0) 12/25/18 07:10 Urine Culture - Final Unspecified Escherichia Coli - Time Spent With Patient Time Spent With Patient: 35 min of time spent with patient, over 1/2 involved with coordination of care counseling. Case discussed with nursing Physical Exam - Physical Exam General Appearance: other (Somnolent), No alert EENT: PERRL/EOMI Neck: non-tender, supple Respiratory: crackles (Few basilar), No respiratory distress, No wheezing Cardiac/Chest: normal peripheral pulses, regular rate, rhythm Abdomen: normal bowel sounds, non-tender, soft Pelvic Exam: deferred Skin: normal color, warm/dry Extremities: normal range of motion, non-tender, normal inspection, normal capillary refill Neuro/Psych: No alert ICD10 Worksheet Patient Problems: Problems Problem Status Onset Sepsis Acute
[2018-12-27] MEDS: MICAFUNGIN NA 100 MG in NS 100 ML IV SCH (09:26)
[2018-12-27] MEDS: ENOXAPARIN 40 MG/0.4 ML SYR SC SCH (09:26)
[2018-12-27] MEDS: GABAPENTIN 300 MG CAP PO SCH ×3 (09:27→21:38)
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
--- NOTE | 2018-12-27 10:38 | PCMIDPN ---
Assessment/Plan: #Sepsis with IVDU. Much improved. Only source of sepsis ID'd is positive urine cx. Due to severity of illness would treat for complicated UTI. TTE neg. Bandemia resolved, increasing WBC likely reflecting more appropriate response; platelets improving --dc zosyn, vancomycin, micafungin today --will Rx 3 more days of Bactrim DS 1 BID to treat for complicated UTI --dc central line as soon as feasible # Elevated LFTs and HCV ab + VL pending; LFTs trending down, suspect due to sepsis --discussed HCV positive test; reviewed HIV negative --HBV immunity testing # IVDU: heroine + meth, states was presenting to detox before came to [facility] at rec of detox --stressed importance of dc IVDU, not sharing needles Medications Zosyn 4.5 g IV Q 6 #2 Micafungin 100 mg IV daily #3 Vancomycin 1 g IV q.12 #3 Microbiology 12/25/18 06:10 Blood Cx (2): NGTD 12/25/18 07:10 Urine Culture: 100K bhardwaj-S Escherichia Coli Subjective: feeling better, eating no pain Objective: Vital Signs Temp Pulse Resp BP Pulse Ox 37.3 C 72 26 H 140/95 H 99 12/27/18 07:50 12/27/18 10:00 12/27/18 10:00 12/27/18 10:00 12/27/18 10:00 Microbiology 12/25/18 07:10 Urine Culture - Final Unspecified Escherichia Coli Laboratory Results 12/27/18 03:25 12/27/18 03:25 12/26/18 12/27/18 12/28/18 05:59 05:59 05:59 Intake Total 5356 4566 Output Total 2750 1275 800 Balance 2606 3291 -800 - Physical Exam General Appearance: alert, no apparent distress, non-toxic EENT: No scleral icterus, No conjunctival petechiae Respiratory: lungs clear, No accessory muscle use Neck: supple Cardiac/Chest: regular rate, rhythm, No systolic murmur Extremities: No pedal edema Skin: other (deferred skin exam today) Neuro/Psych: alert, normal mood/affect, oriented x 3 - Line/s other Lines: other (R IJ TLC c/d/i), No drainage, No erythema - Time Spent With Patient Time Spent with Patient: greater than 35 minutes Time Spent with Patient: Greater than 35 minutes spent on this patients care, greater than 50% of time spent counseling, educating, and coordinating care regarding the above mentioned plan. ICD10 Worksheet Patient Problems: Problems Problem Status Onset Sepsis Acute
[2018-12-27] MEDS: SULFAMETHOX/TMP 800/160 MG 1 TAB PO SCH (21:41)
[2018-12-28] MEDS: LORazepam 1 MG TAB PO PRN ×4 (01:08→20:40)
[2018-12-28 05:53] LABS: PLATELET COUNT 197 10^3/uL (150-400)
[2018-12-28] MEDS: ENOXAPARIN 40 MG/0.4 ML SYR SC SCH (08:29)
[2018-12-28] MEDS: SULFAMETHOX/TMP 800/160 MG 1 TAB PO SCH ×2 (08:30→20:40)
[2018-12-28] MEDS: GABAPENTIN 300 MG CAP PO SCH ×3 (08:30→22:09)
--- NOTE | 2018-12-28 09:10 | PDINTPN ---
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 Off pressors. Echocardiogram shows no evidence of vegetations. Only source appears to be urine -current antibiotics per Infectious Disease * Abdominal pain-CT scan of abdomen mostly unremarkable. Resolved per patient * Back pain-MRI of the spine was negative. No change * Leukopenia * Lactic acidosis-resolved * History of IV heroin abuse-currently withdrawing -continue close cardiovascular monitoring -continue clonidine * Urinary tract infection * Encephalopathy-resolved * VTE prophylaxis * Stress ulcer prophylaxis * Nutrition-none currently Subjective: Complains of back pain. Appetite has been adequate. Denies any breathlessness or abdominal pain. Objective: Vital Signs Temp Pulse Resp BP Pulse Ox 37.5 C 71 20 120/74 98 12/28/18 07:16 12/28/18 07:16 12/28/18 07:16 12/28/18 07:16 12/28/18 07:16 Microbiology 12/25/18 07:10 Urine Culture - Final Unspecified Escherichia Coli Laboratory Results 12/28/18 05:20 12/28/18 05:20 12/27/18 12/28/18 12/29/18 05:59 05:59 05:59 Intake Total 4566 2722 Output Total 1275 4150 Balance 3291 -1428 PT 14.2 SEC (12.0-15.0) 12/25/18 06:10 INR 1.15 (0.83-1.16) 12/25/18 06:10 - Time Spent With Patient Time Spent With Patient: 35 min of time spent with patient, over 1/2 involved with coordination of care counseling. Case discussed with nursing Physical Exam - Physical Exam General Appearance: alert, mild distress EENT: PERRL/EOMI Neck: non-tender, supple Respiratory: chest non-tender, lungs clear, normal breath sounds Cardiac/Chest: normal peripheral pulses, regular rate, rhythm Peripheral Pulses: 2+: carotid (R), carotid (L), femoral (R), femoral (L), dorsalis-pedis (R), dorsalis-pedis (L) Abdomen: normal bowel sounds, non-tender, soft Pelvic Exam: deferred Rectal: deferred Skin: normal color, warm/dry Extremities: normal range of motion, non-tender, normal inspection, normal capillary refill Neuro/Psych: alert ICD10 Worksheet Patient Problems: Problems Problem Status Onset Sepsis Acute
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
[2018-12-28] MEDS ORDERED: METHOCARBAMOL 500 MG TAB PO PRN (13:35)
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
[2018-12-28] MEDS ORDERED: GADOBUTROL 10 ML VIAL IVP ONE (14:07)
[2018-12-28] MEDS: ONDANSETRON 4 MG/2 ML VIAL IVP PRN (23:31)
[2018-12-29] MEDS: KETOROLAC 15 MG/1 ML SDV IVP PRN (07:26)
[2018-12-29] MEDS: SULFAMETHOX/TMP 800/160 MG 1 TAB PO SCH (07:26)
[2018-12-29] MEDS: GABAPENTIN 300 MG CAP PO SCH (07:27)
[2018-12-29] MEDS: ENOXAPARIN 40 MG/0.4 ML SYR SC SCH (07:27)
[2018-12-29] MEDS: LORazepam 1 MG TAB PO PRN ×2 (07:29→11:46)
[2018-12-29] MEDS ORDERED: NS 500 ML IV ONE (07:53)
[2018-12-29 08:01] LABS: PLATELET COUNT 248 10^3/uL (150-400)
--- NOTE | 2018-12-29 08:25 | PDINTPN ---
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 Echocardiogram shows no evidence of vegetations. Only source appears to be urine -current antibiotics per Infectious Disease * Abdominal pain-CT scan of abdomen mostly unremarkable. Resolved per patient * Back pain-MRI of the spine was negative. No change * Leukopenia * Lactic acidosis-resolved * History of IV heroin abuse-currently withdrawing -continue close cardiovascular monitoring -continue clonidine * Urinary tract infection * Encephalopathy-resolved * VTE prophylaxis * Stress ulcer prophylaxis * Nutrition-none currently * Disposition-okay for transfer to floor Subjective: Resting comfortably. No current complaints. Objective: Vital Signs Temp Pulse Resp BP Pulse Ox 36.8 C 65 20 93/71 L 97 12/29/18 07:14 12/29/18 07:14 12/29/18 07:14 12/29/18 07:14 12/29/18 07:14 Laboratory Results 12/29/18 06:05 12/28/18 05:20 12/28/18 12/29/18 12/30/18 05:59 05:59 05:59 Intake Total 2722 1000 Output Total 4150 2625 Balance -1428 -1625 PT 14.2 SEC (12.0-15.0) 12/25/18 06:10 INR 1.15 (0.83-1.16) 12/25/18 06:10 - Time Spent With Patient Time Spent With Patient: 35 min of time spent with patient, over 1/2 involved with coordination of care counseling. Case discussed with nursing Physical Exam - Physical Exam General Appearance: alert, no apparent distress EENT: PERRL/EOMI Neck: non-tender, full range of motion, supple, normal inspection Respiratory: chest non-tender, lungs clear, normal breath sounds Cardiac/Chest: normal peripheral pulses, regular rate, rhythm Abdomen: normal bowel sounds, non-tender, soft Pelvic Exam: deferred Rectal: deferred Skin: normal color, warm/dry Extremities: normal range of motion, non-tender, normal inspection, normal capillary refill Neuro/Psych: alert ICD10 Worksheet Patient Problems: Problems Problem Status Onset Sepsis Acute
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
[2018-12-29 11:43] VITALS: BP 100/71
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
--- NOTE | 2018-12-29 13:53 | ASMTDCNOTE ---
Case Management Discharge Discharge Order Complete? Answers: No Notes: AMA Patient to Obtain Answers: Independently Medications Transportation Arranged Answers: Other Notes: LYFT per [facility] Discharge Comments Notes: Patient demanding to smoke cigarette/leave hospital. She says she is in crisis, having all sorts of feelings and symptoms of her PTSD. She says she wants help, wants to resume Vivitrol. She is tearful. She is making eye contact wtih me and seems genuine in her intentions; however, she is unable to think beyond wanting to leave the hospital, [facility]. I asked her if she would engage with the [facility] crisis center. She said she would. She denied suicidality. I quickly called and spoke gill Delgado at [facility] who said that they would see patient if she was medically stable. I called [facility] who ordered a Lyft. LUIS ALBERTO Goodman helped patient sign AMA paperwork. I accompanied patient to lobby and waited with her until LYFT arrived. Patient said she felt weak. I asked her if she wanted to stay at hospital. She declined and thanked me for the help. Dr Shea called an RX for antibiotics to the pharmacy listed in her chart and called her aunt to inform her. Patient asked that we not tell her where she went. Date Signed: 12/29/2018 01:53 PM Electronically Signed By:Irina Varghese RN
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
--- NOTE | 2018-12-29 14:39 | ASMTCMCOM ---
CM Note CM Note Notes: POST-DISCHARGE CM NOTE: I received a call from Mica at [facility] requesting background information on patient (patient gave [employer] permission to speak with me). I gave Mica background gleaned from HEIDY Farrar, note on 12/26 as well as a note from 12/29 by chaplain Terrell. I also gave admission date, reason for admission, as well as reason for AMA disposition. Date Signed: 12/29/2018 02:38 PM Electronically Signed By:Irina Varghese RN
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
[2019-01-01 14:50] LABS: HCV QT RNA PCR < 1 IU/mL (<10)
== END 2018-12-29 13:15 | disposition left against medical advice (07) | DRG 871 ==
LOC: EEVIPCON 06:35 → F2N 08:32
PROVIDERS: ADMIT Student in an Organized Health Care Education/Training Program; ATTEND Student in an Organized Health Care Education/Training Program
DX: A41.51 Sepsis due to Escherichia coli [E. coli] (principal); R65.21 Severe sepsis with septic shock; N39.0 Urinary tract infection, site not specified; F11.23 Opioid dependence with withdrawal; D72.819 Decreased white blood cell count, unspecified; E87.2 Acidosis; B19.20 Unspecified viral hepatitis C without hepatic coma; B96.20 Unspecified Escherichia coli [E. coli] as the cause of diseases classified elsewhere; Z91.419 Personal history of unspecified adult abuse; F17.210 Nicotine dependence, cigarettes, uncomplicated
CPT/HCPCS: 96365; 97161-GP; 97530-GP; A9585; G0472; G0480; J1650; J1885; J2060; J2248; J2250; J2405; J2543; J3370; Q9967